=== PATIENT | female | born 1955 | race Caucasian/White ===

== ENCOUNTER 2021-11-13 22:15 | Observation (INO) ==
[2021-11-14] MEDS ORDERED: Melatonin 3 MG TABLET PO PRN (00:34)
[2021-11-14] MEDS ORDERED: Acetaminophen 325 MG TABLET PO PRN (00:34)
[2021-11-14] MEDS ORDERED: Ondansetron 4 MG/2 ML VIAL IVP PRN (00:34)
[2021-11-14] MEDS ORDERED: Naloxone 0.4 MG/ML INJ IVP PRN (00:34)
[2021-11-14] MEDS ORDERED: 0.9 % Sodium Chloride 1,000 ML IVC SCH (00:45)
[2021-11-14 04:18] LABS: INR 1.1; Prothrombin Time 11.7 Seconds (9.4-12.1)
[2021-11-14 04:20] LABS: Activated Partial Thrombo Time 30.2 Seconds (26.0-36.0)
[2021-11-14 04:26] LABS: Hematocrit 30.8 % (35.3-44.9); Hemoglobin 9.9 g/dL (11.5-15.4); Mean Corpuscular HGB Conc 32.1 g/dL (31.6-35.5); Mean Corpuscular Hemoglobin 28.5 pg (28.0-33.3); Mean Corpuscular Volume 88.8 fL (83.0-100.0); Mean Platelet Volume 9.4 fL (9.4-12.4); Platelet Count 241 K/mcL (140-400); Red Blood Count 3.47 M/mcL (3.82-4.97); Red Cell Distribution Width 14.1 % (11.5-14.5)
[2021-11-14 04:55] LABS: Calcium 7.8 mg/dL (8.6-10.3); Potassium 3.6 mEq/L (3.5-5.1)
[2021-11-14] MEDS: Morphine Sulfate 2 MG/ML SYRINGE IVP PRN ×2 (16:17→22:16)
[2021-11-14] MEDS ORDERED: *HR* HYDROcodone/Acet 5/325 mg TABLET PO PRN (16:46)
[2021-11-14] MEDS: *HR* HYDROcodone/Acet 10/325 mg TABLET PO PRN (21:33)
[2021-11-14] MEDS ORDERED: *HR* HYDROmorphone 2 MG/ML SYRINGE IVP ONE (23:17)
[2021-11-15] MEDS: Morphine Sulfate 2 MG/ML SYRINGE IVP PRN ×2 (04:42→14:49)
[2021-11-15] MEDS: *HR* HYDROcodone/Acet 10/325 mg TABLET PO PRN ×2 (04:46→14:44)
[2021-11-15 07:15] LABS: Basophils % 0.1 %; Eosinophils % 0.1 %; Hematocrit 30.3 % (35.3-44.9); Hemoglobin 9.5 g/dL (11.5-15.4); Immature Granulocytes % 0.5 % (0-4); Lymphocytes # 1.6 K/mcL (0.6-4.6); Lymphocytes % 20.3 %; Mean Corpuscular HGB Conc 31.4 g/dL (31.6-35.5); Mean Corpuscular Hemoglobin 28.5 pg (28.0-33.3); Mean Platelet Volume 9.5 fL (9.4-12.4); Monocytes # 0.9 K/mcL (0.0-1.3); Monocytes % 11.4 %; Neutrophils # 5.5 K/mcL (1.6-8.9); Platelet Count 214 K/mcL (140-400); Red Blood Count 3.33 M/mcL (3.82-4.97); Red Cell Distribution Width 14.2 % (11.5-14.5); Segmented Neutrophils % 67.6 %; White Blood Count 8.1 K/mcL (4.3-11.1)
[2021-11-15 08:38] LABS: Albumin 3.7 g/dL (3.5-5.7); Albumin/Globulin Ratio 1.5 (1.1-2.2); Bilirubin,Total 0.4 mg/dL (0.3-1.0); Globulin 2.5 g/dL (2.4-3.5); Potassium 3.8 mEq/L (3.5-5.1); Total Protein 6.2 g/dL (6.4-8.9)
[2021-11-15] MEDS ORDERED: CeFAZolin Syr 2,000MG/20 ML 2,000 MG/20 ML SYRINGE IVPB ONE (13:57)
[2021-11-15] MEDS ORDERED: Ringers Solution, Lactated 1,000 ML IVC SCH ×3 (14:00→21:37)
[2021-11-15] MEDS ORDERED: flumazeniL 0.5 MG/5 ML VIAL IVP PRN ×2 (15:45→21:37)
[2021-11-15] MEDS ORDERED: *HR* OxyCODONE Immed Rel 5 MG TABLET PO PRN ×2 (15:45→21:37)
[2021-11-15] MEDS ORDERED: *HR* Meperidine 25 MG/ML SYRINGE IVP PRN (15:45)
[2021-11-15] MEDS ORDERED: Ondansetron 4 MG/2 ML VIAL IVP PRN ×3 (15:45→21:37)
[2021-11-15] MEDS ORDERED: *HR* FentaNYL (PF) 100 MCG/2 ML VIAL IVP PRN ×2 (15:45→21:37)
[2021-11-15] MEDS ORDERED: *HR* Labetalol 20 MG/4 ML SYRINGE IVP PRN ×2 (15:45→21:37)
[2021-11-15] MEDS ORDERED: Albuterol 2.5 MG/3 ML NEBULIZER IH PRN (15:45)
[2021-11-15] MEDS ORDERED: Acetaminophen IV 1,000 MG/100 ML BAG IVPB PRN ×2 (15:45→21:37)
[2021-11-15] MEDS ORDERED: Ipratropium Neb 0.5 MG NEBULIZER IH PRN ×2 (15:45→21:37)
[2021-11-15] MEDS ORDERED: *HR* FentaNYL (PF) 100 MCG/2 ML VIAL ONE (15:49)
[2021-11-15] MEDS ORDERED: *HR* Midazolam HCl 2 MG/2 ML VIAL ONE (15:49)
[2021-11-15] MEDS ORDERED: Lidocaine -MPF 2% 5 ML VIAL ONE ×2 (15:49→17:17)
[2021-11-15] MEDS ORDERED: *HR* Propofol 200 MG/20 ML VIAL IVP ONE (15:50)
[2021-11-15] MEDS ORDERED: Ropivacaine/PF 0.5% 30 ML VIAL ONE (15:53)
[2021-11-15] MEDS ORDERED: carvediloL 6.25 MG TABLET PO ONE (16:10)
[2021-11-15] MEDS ORDERED: EPHEDrine 50 MG/ML VIAL ONE (17:13)
[2021-11-15] MEDS ORDERED: *HR* HYDROMORPHONE 2 MG/ML VIAL ONE (18:40)
[2021-11-15] MEDS ORDERED: Aspirin 81 MG TAB.CHEW PO SCH (20:15)
[2021-11-15] MEDS ORDERED: *HR* HYDROcodone/Acet 10/325 mg TABLET PO PRN (21:37)
[2021-11-15] MEDS ORDERED: Melatonin 3 MG TABLET PO PRN (21:37)
[2021-11-15] MEDS ORDERED: Morphine Sulfate 2 MG/ML SYRINGE IVP PRN (21:37)
[2021-11-15] MEDS ORDERED: *HR* HYDROcodone/Acet 5/325 mg TABLET PO PRN (21:37)
[2021-11-15] MEDS ORDERED: Acetaminophen 325 MG TABLET PO PRN (21:37)
[2021-11-15] MEDS ORDERED: Naloxone 0.4 MG/ML INJ IVP PRN (21:37)
[2021-11-16 02:37] LABS: Basophils % 0.1 %; Hematocrit 29.5 % (35.3-44.9); Hemoglobin 9.3 g/dL (11.5-15.4); Immature Granulocytes % 0.3 % (0-4); Lymphocytes # 0.7 K/mcL (0.6-4.6); Lymphocytes % 6.7 %; Mean Corpuscular HGB Conc 31.5 g/dL (31.6-35.5); Mean Corpuscular Hemoglobin 28.5 pg (28.0-33.3); Mean Corpuscular Volume 90.5 fL (83.0-100.0); Mean Platelet Volume 9.9 fL (9.4-12.4); Monocytes # 0.1 K/mcL (0.0-1.3); Monocytes % 1.2 %; Neutrophils # 8.9 K/mcL (1.6-8.9); Platelet Count 195 K/mcL (140-400); Red Blood Count 3.26 M/mcL (3.82-4.97); Red Cell Distribution Width 13.8 % (11.5-14.5); Segmented Neutrophils % 91.7 %; White Blood Count 9.7 K/mcL (4.3-11.1)
[2021-11-16 02:41] LABS: Alanine Aminotransferase 53 Units/L (7-52); Albumin 3.6 g/dL (3.5-5.7); Albumin/Globulin Ratio 1.4 (1.1-2.2); Alkaline Phosphatase 163 Units/L (34-104); Aspartate Amino Transferase 60 Units/L (13-39); BUN/Creatinine Ratio 16 (6-26); Bilirubin,Total 0.3 mg/dL (0.3-1.0); Blood Urea Nitrogen 16 mg/dL (8-23); Calcium 7.7 mg/dL (8.6-10.3); Carbon Dioxide 19 mEq/L (23-29); Chloride 111 mEq/L (98-107); Creatine Kinase 164 Units/L (30-223); Globulin 2.5 g/dL (2.4-3.5); Glucose 141 mg/dL (70-105); Magnesium 1.8 mg/dL (1.6-2.6); Osmolality,Calculated 286 (280-300); Phosphorous 3.3 mg/dL (2.7-4.5); Potassium 4.1 mEq/L (3.5-5.1); Sodium 136 mEq/L (136-145); Total Protein 6.1 g/dL (6.4-8.9); eGFR For African Americans > 60 (> 60); eGFR For Non-African Americans 56 (> 60)
[2021-11-16] MEDS ORDERED: Aspirin 81 MG TAB.CHEW PO SCH (09:00)
[2021-11-16] MEDS: cephALEXin 500 MG CAPSULE PO SCH ×2 (10:08→15:42)
[2021-11-16] MEDS ORDERED: ALPRAZolam 1 MG TABLET PO PRN (10:54)
[2021-11-16] MEDS ORDERED: FLUoxetine 20 MG CAPSULE PO SCH (11:45)
[2021-11-16] MEDS ORDERED: Ranolazine 500 MG TAB.ER.12H PO SCH (11:45)
[2021-11-16 15:54] VITALS: BP 184/79; PULSE 88; TEMP 99; O2SAT 96
[2021-11-16] MEDS ORDERED: carvediloL 6.25 MG TABLET PO SCH (17:00)
[2021-11-16] MEDS ORDERED: ALPRAZolam 1 MG TABLET PO SCH (21:00)
[2021-11-17] MEDS ORDERED: ALPRAZolam 1 MG TABLET PO SCH (09:00)
[2021-11-17] MEDS ORDERED: (Ezetimibe [Zetia] 10 MG Tablet) PO SCH (09:00)
== END 2021-11-16 18:58 | disposition home health service (06) ==
LOC: 4WAOSI → SUATTDRO 11-14 00:20
PROVIDERS: ADMIT Internal Medicine; ATTEND Internal Medicine